=== PATIENT | female | born 1950 ===

== ENCOUNTER 2016-08-04 13:30 | Emergency (ER) | payer OTHER ==
[2016-08-04 13:47] VITALS: BMI 31.1
[2016-08-04 13:51] VITALS: RESP 18; TEMP 98.2; O2SAT 97
[2016-08-04] MEDS ORDERED: Naproxen 550 mg Tab PO STA (14:39)
[2016-08-04] MEDS ORDERED: Naproxen 550 mg Tab PO ONE (14:46)
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
--- NOTE | 2016-08-04 15:53 | RAD ---
PROCEDURE: Radiographs of the Lumbar Spine. HISTORY: pain COMPARISON: No prior. FINDINGS: BONES: Mild scoliosis. No acute fracture. DISC SPACES: Mild degenerative changes primarily disc space narrowing and non marginal osteophyte formation upper lumbar spine. OTHER FINDINGS: Calcified nonaneurysmal abdominal aorta. IMPRESSION: No acute findings related to/accounting for the clinical presentation.
[2016-08-04 16:03] VITALS: BP 124/90; PULSE 100
== END 2016-08-04 16:03 | disposition home or self-care (01) ==
LOC: C.ER 13:30
DX: S39.012A Strain of muscle, fascia and tendon of lower back, initial encounter (principal); S16.1XXA Strain of muscle, fascia and tendon at neck level, initial encounter; V89.2XXA Person injured in unspecified motor-vehicle accident, traffic, initial encounter